=== PATIENT | male | born 1985 | race Caucasian/White ===

== ENCOUNTER 2018-03-02 11:23 | Emergency (ER) | payer BC, OTHER, SELFPAY ==
[2018-03-02] MEDS ORDERED: IBUPROFEN 200 MG TAB PO ONE (12:45)
--- NOTE | 2018-03-02 12:48 | EDPHYS ---
Physician Documentation [facility] Name: Jose Luis Seymour Age: 32 yrs Sex: Male : 1985 Arrival Date: 03/02/2018 Time: 11:30 Bed 4 Private MD: José Miguel Swenson H ED Physician Michael Hoover HPI: 03/02 12:05 This 32 yrs old Male presents to ER via Ambulatory with complaints of Back nico Injury. 12:05 The patient presents with pain that is acute. The symptoms are located in the right nico scapular area and right subscapular area. Onset: The symptoms/episode began/occurred just prior to arrival, this morning. The pain does not radiate. Associated signs and symptoms: Pertinent positives: pain, sob. The problem was sustained when lifting patient. Modifying factors: The patient symptoms are alleviated by remaining still, rest, the patient symptoms are aggravated by any movement, coughing. Severity of symptoms: At their worst the symptoms were moderate, in the emergency department the symptoms have improved, mildly. The patient has not experienced similar symptoms in the past. Historical: - Allergies: 11:41 Sulfa (Sulfonamide Antibiotics); aj - Home Meds: 11:41 None [Active]; aj - PMHx: 11:41 None; aj - PSHx: 11:41 None; aj - Immunization history:: Adult Immunizations up to date. - Social history:: Smoking status: Patient/guardian denies using tobacco. - Ebola Screening: : Patient negative for fever greater than or equal to 101.5 degrees Fahrenheit, and additional compatible Ebola Virus Disease symptoms Patient denies exposure to infectious person Patient denies travel to an Ebola-affected area in the 21 days before illness onset No symptoms or risks identified at this time. - Family history:: not pertinent. ROS: 12:05 Constitutional: Negative for fever, chills, and weight loss, Eyes: Negative for injury, nico pain, redness, and discharge, ENT: Negative for injury, pain, and discharge, Neck: Negative for injury, pain, and swelling, Cardiovascular: Negative for chest pain, palpitations, and edema, Abdomen/GI: Negative for abdominal pain, nausea, vomiting, diarrhea, and constipation, : Negative for injury, bleeding, discharge, and swelling, MS/Extremity: Negative for injury and deformity, Skin: Negative for injury, rash, and discoloration, Neuro: Negative for headache, weakness, numbness, tingling, and seizure, Psych: Negative for depression, anxiety, suicide ideation, homicidal ideation, and hallucinations, Allergy/Immunology: Negative for hives, rash, and allergies, Endocrine: Negative for neck swelling, polydipsia, polyuria, polyphagia, and marked weight changes, Hematologic/Lymphatic: Negative for swollen nodes, abnormal bleeding, and unusual bruising. 12:05 Respiratory: Positive for pleurisy. 12:05 Back: Positive for decreased range of motion, pain at rest, pain with movement, of the right subscapular area. Vital Signs: 11:41 BP 125 / 66; Pulse 67; Resp 15; Temp 98.5; Pulse Ox 99% on R/A; Weight 74.84 kg; Height aj 6 ft. 1 in. (185.42 cm); 12:00 BP 111 / 65; Pulse 55; Resp 18; Pulse Ox 96% on R/A; Pain 3/10; jb4 11:41 Body Mass Index 21.77 (74.84 kg, 185.42 cm) MDM: 11:45 Patient medically screened. [facility] 03/02 12:03 Order name: Chest Pa And Lat (2 Views) XRAY [facility] Administered Medications: 12:45 Drug: Motrin 600 mg Route: PO; [facility] [place] 13:20 Follow up: Response: No adverse reaction jb4 Disposition: 03/02/18 12:47 Discharged to Home. Impression: Strain of muscle and tendon of back wall of thorax. - Condition is Stable. - Discharge Instructions: Back Pain, Adult, Back Pain, Adult, [id number]. - Prescriptions for Ibuprofen 600 mg Oral Tablet - take 1 tablet by ORAL route every 8 hours As needed take with food; 21 tablet. Tylenol- Codeine #3 300-30 mg Oral Tablet - take 2 tablets by ORAL route every 6 hours As needed; 24 tablet. - Medication Reconciliation Form, Thank You Letter, Antibiotic Education, Prescription Opioid Use form. - Follow up: José Miguel Swenson; When: 2 - 3 days; Reason: Recheck today's complaints, Continuance of care, Re-evaluation by your physician. Follow up: Private Physician; When: 2 - 3 days; Reason: Recheck today's complaints, Re-evaluation by your physician. - Problem is new. - Symptoms have improved. Signatures: Dispatcher [employer] Nenita Diaz, RN RN Michael Rodriguez MD MD cha Bryson, James, RN RN jb4 Corrections: (The following items were deleted from the chart) 13:22 12:47 03/02/2018 12:47 Discharged to Home. Impression: Strain of muscle and tendon of jb4 back wall of thorax. Condition is Stable. Discharge Instructions: Back Pain, Adult, Back Pain, Adult, [id number]. Prescriptions for Ibuprofen 600 mg Oral Tablet - take 1 tablet by ORAL route every 8 hours As needed take with food; 21 tablet, Tylenol-Codeine #3 300-30 mg Oral Tablet - take 2 tablets by ORAL route every 6 hours As needed; 24 tablet. and Forms are Medication Reconciliation Form, Thank You Letter, Antibiotic Education, Prescription Opioid Use. Follow up: José Miguel Swenson; When: 2 - 3 days; Reason: Recheck today's complaints, Continuance of care, Re-evaluation by your physician. Follow up: Private Physician; When: 2 - 3 days; Reason: Recheck today's complaints, Re-evaluation by your physician. Problem is new. Symptoms have improved. nico
--- NOTE | 2018-03-02 12:48 | ER ---
Nurse's Notes [facility] Name: Jose Luis Seymour Age: 32 yrs Sex: Male : 1985 Arrival Date: 03/02/2018 Time: 11:30 Bed 4 Private MD: Jos éMiguel Swenson H Diagnosis: Strain of muscle and tendon of back wall of thorax Presentation: 03/02 11:40 Presenting complaint: Patient states: Reports pain between shoulder blades when aj transferring a person today at 0800. Pain is worse with movement. Transition of care: patient was not received from another setting of care. Onset of symptoms was March 02, 2018. Risk Assessment: Do you want to hurt yourself or someone else? Patient reports no desire to harm self or others. Initial Sepsis Screen: Does the patient meet any 2 criteria? No. Patient's initial sepsis screen is negative. Does the patient have a suspected source of infection? No. Patient's initial sepsis screen is negative. Care prior to arrival: None. 11:40 Method Of Arrival: Ambulatory 11:40 Acuity: KAREN 4 Triage Assessment: 11:41 General: Appears in no apparent distress. comfortable, Behavior is calm, cooperative, aj appropriate for age. Pain: Complains of pain in thoracic area. Neuro: Level of Consciousness is awake, alert, obeys commands, Oriented to person, place, time, situation, Appropriate for age. Respiratory: Airway is patent Respiratory effort is even, unlabored, Respiratory pattern is regular, symmetrical. Derm: Skin is intact, is healthy with good turgor, Skin is pink, warm \T\ dry. normal. Musculoskeletal: Circulation, motion, and sensation intact. Range of motion: intact in all extremities, Reports pain in thoracic area. Historical: - Allergies: 11:41 Sulfa (Sulfonamide Antibiotics); aj - Home Meds: 11:41 None [Active]; aj - PMHx: 11:41 None; aj - PSHx: 11:41 None; aj - Immunization history:: Adult Immunizations up to date. - Social history:: Smoking status: Patient/guardian denies using tobacco. - Ebola Screening: : Patient negative for fever greater than or equal to 101.5 degrees Fahrenheit, and additional compatible Ebola Virus Disease symptoms Patient denies exposure to infectious person Patient denies travel to an Ebola-affected area in the 21 days before illness onset No symptoms or risks identified at this time. - Family history:: not pertinent. Screenin:54 Abuse screen: Denies threats or abuse. Nutritional screening: No deficits noted. jb4 Tuberculosis screening: No symptoms or risk factors identified. Fall Risk None identified. Assessment: 11:54 General: Appears in no apparent distress. uncomfortable, Behavior is calm, cooperative, jb4 appropriate for age. Pain: Complains of pain in right scapular area Pain does not radiate. Pain currently is 3 out of 10 on a pain scale. at worst was 7 out of 10 on a pain scale. Quality of pain is described as stabbing, Pain began 30 min ago. Is continuous. Neuro: Level of Consciousness is awake, alert, obeys commands, Oriented to person, place, time, situation. Cardiovascular: Patient's skin is warm and dry. Respiratory: Reports pain with cough after Pt transfer. Pain when deep breathing after transfering. Airway is patent Respiratory effort is even, labored, Respiratory pattern is regular, symmetrical. GI: No signs and/or symptoms were reported involving the gastrointestinal system. : No signs and/or symptoms were reported regarding the genitourinary system. EENT: No signs and/or symptoms were reported regarding the EENT system. Derm: Skin is intact, Skin is pink, warm \T\ dry. Musculoskeletal: Circulation, motion, and sensation intact. Reports pain in right scapular area. 12:55 Reassessment: Pt at x-ray. jb4 13:00 Reassessment: Patient appears in no apparent distress at this time. Patient and/or jb4 family updated on plan of care and expected duration. Pain level reassessed. Patient is alert, oriented x 3, equal unlabored respirations, skin warm/dry/pink. Vital Signs: 11:41 BP 125 / 66; Pulse 67; Resp 15; Temp 98.5; Pulse Ox 99% on R/A; Weight 74.84 kg; Height aj 6 ft. 1 in. (185.42 cm); 12:00 BP 111 / 65; Pulse 55; Resp 18; Pulse Ox 96% on R/A; Pain 3/10; jb4 11:41 Body Mass Index 21.77 (74.84 kg, 185.42 cm) aj ED Course: 11:30 Patient arrived in ED. rg4 11:30 José Miguel Swenson DO is Private Physician. rg4 11:40 Triage completed. aj 11:41 Arm band placed on left wrist. Patient placed in an exam room. rashida 11:45 Michael Hoover MD is Attending Physician. nico 11:45 Kai Meng, RN is Primary Nurse. cassy 11:54 Ezequiel Hernandez, RN is Primary Nurse. jb4 11:54 Patient has correct armband on for positive identification. Bed in low position. Call jb4 light in reach. Side rails up X 1. Pulse ox on. NIBP on. 12:27 X-ray completed. Patient tolerated procedure well. kp1 12:29 Chest Pa And Lat (2 Views) XRAY In Process Unspecified. EDMS 12:47 José Miguel Swenson DO is Referral Physician. [facility] 13:22 No provider procedures requiring assistance completed. Patient did not have IV access jb4 during this emergency room visit. Administered Medications: 12:45 Drug: Motrin 600 mg Route: PO; jb4 13:20 Follow up: Response: No adverse reaction jb4 Outcome: 12:47 Discharge ordered by . [facility] 13:22 Discharged to home ambulatory. jb4 13:22 Condition: stable 13:22 Discharge instructions given to patient, Instructed on discharge instructions, follow up and referral plans. medication usage, Demonstrated understanding of instructions, follow-up care, medications, Prescriptions given X 2. 13:22 Patient left the ED. jb4 Signatures: Dispatcher [employer] EDTX Nenita Umaña RN RN aj Anderson, Corey, MD MD cha Garcia, Rubi 4 Ezequiel Hernandez RN RN jb4 Leal, Jahala, RN RN Koko OvalleeMari 1
--- NOTE | 2018-03-02 13:01 | RAD REPORT ---
EXAM DESCRIPTION: RAD - Chest Pa And Lat (2 Views) - 03/02/2018 12:35 pm CLINICAL HISTORY: Chest pain COMPARISON: None. TECHNIQUE: PA and lateral views of the chest were obtained. FINDINGS: The lungs are clear. Heart size is normal and central vasculature is within normal limit s. No pleural effusion or pneumothorax seen. No acute bony finding noted. No aortic abnormality. IMPRESSION: No acute cardiopulmonary process.
== END 2018-03-02 13:22 | disposition home or self-care (01) ==
LOC: ER 11:23
DX: S29.012A Strain of muscle and tendon of back wall of thorax, initial encounter (principal); X50.9XXA Other and unspecified overexertion or strenuous movements or postures, initial encounter; Y93.9 Activity, unspecified; Y92.9 Unspecified place or not applicable; Z88.2 Allergy status to sulfonamides
CPT/HCPCS: 71046; 99284